=== PATIENT | female | born 1930 | race Asian ===

== ENCOUNTER 2017-06-08 09:06 | Inpatient (IN) | payer MEDICARE, OTHER ==
[~2017-06-08] VITALS: Ht 162.6 cm; Wt 63.0 kg
[2017-06-08] MEDS ORDERED: ONDANSETRON 4 MG INJ IV PRN (12:00)
[2017-06-08] MEDS ORDERED: ACETAMINOPHEN 325 MG TAB PO PRN (12:00)
--- NOTE | 2017-06-08 12:12 | ERD ---
ER Documentation Chief Complaint Chief Complaint sent by dr. stack to declot graft ruma VILLANUEVA This is an 87-year-old female with a known history of [id number] diabetes mellitus and end-stage renal disease on hemodialysis every Friday and Friday. The patient a full run of dialysis on Friday, 2 days prior to arrival. However during this dialysis session the patient's AV fistula of the left upper extremity was clotted and they utilize the patient's left chest vascular surgeon is Dr. Tran. Tunneled catheter for dialysis access. Her financial operations consultant is Dr. Carlene Haynes. She denies any shortness of breath or difficulty breathing. She has no chest pain. She denies any numbness or tingling or pain of her left upper extremity where the fistula was placed roughly 2 months prior to arrival. She was instructed to come to the emergency department for declotting of her fistula. Fevers no shaking or chills ROS All systems reviewed and are negative except as per history of present illness. Allergies Allergies: Coded Allergies: No Known Allergies (Verified Allergy, Unknown, 07/13/07) PMhx/Soc Hx Miscellaneous Medical Probl: Yes (esrd, dialysis) Hx Alcohol Use: No Hx Substance Use: No Hx Tobacco Use: No Smoking Status: Never smoker Physical Exam Vitals Vital Signs Date Time Temp Pulse Resp B/P Pulse Ox O2 Delivery O2 Flow Rate FiO2 06/08/17 09:09 98.8 86 20 134/60 97 Physical Exam Constitutional:Well-developed. Well-nourished. HEENT:Normocephalic. Atraumatic. Left Pupil is reactive to light and right pupil has corneal clouding from a cataract. Moist mucous membranes.No tonsillar exudates. Neck: No nuchal rigidity. No lymphadenopathy. No posterior cervical spine tenderness or step-offs. Respiratory: Not using accessory muscles of respiration.Lungs were clear to auscultation bilaterally. No rhonchi. No rales. No wheezing. Cardiovascular: Regular rate regular rhythm.No murmurs. No rubs were appreciated.S1, S2 normal. Distal pulses are palpable 2+ bilaterally. Left tunneled chest wall catheter is clean dry and intact GI: Abdomen was soft. Nontender. Non Distended. No pulsatile abdominal masses or bruits. No rebound. No guarding. Bowel sounds were present and normal. Muscle skeletal: Full range of motion of both the upper and lower extremities bilaterally.Normal muscle tone.No assymetrical calf tenderness or swelling. Skin: No petechia, no purpura. No lesions on the palms or the soles of the feet. No maculopapular rash. No thrill or bruit of the left upper extremity AV fistula. NEURO: Patient was alert, awake, orientated x3.No facial droop. Gait observed and normal with no ataxia.Speech had regular rate and rhythm. No focal neurological deficits. Result Diagram: 06/08/17 1000 06/08/17 1000 Results 24 hrs Laboratory Tests Test 06/08/17 10:00 White Blood Count 8.510^3/ul Red Blood Count 3.6210^6/ul Hemoglobin 13.3g/dl Hematocrit 41.5% Mean Corpuscular Volume 114.6fl Mean Corpuscular Hemoglobin 36.7pg Mean Corpuscular Hemoglobin Concent 32.0g/dl Red Cell Distribution Width 14.6% Platelet Count 36106^3/UL Mean Platelet Volume 9.8fl Neutrophils % 62.7% Lymphocytes % 23.3% Monocytes % 9.4% Eosinophils % 3.1% Basophils % 1.1% Nucleated Red Blood Cells % 0.0/100WBC Neutrophils # 5.310^3/ul Lymphocytes # 2.010^3/ul Monocytes # 0.810^3/ul Eosinophils # 0.310^3/ul Basophils # 0.110^3/ul Nucleated Red Blood Cells # 0.010^3/ul Prothrombin Time 12.9Sec Prothrombin Time Ratio 1.0 INR International Normalized Ratio 0.97 Activated Partial Thromboplast Time 30.2Sec Sodium Level 141mmol/L Potassium Level 4.7mmol/L Chloride Level 98mmol/L Carbon Dioxide Level 25mmol/L Anion Gap 23 Blood Urea Nitrogen 53mg/dl Creatinine 7.76mg/dl Glucose Level 169mg/dl Calcium Level 9.3mg/dl Total Bilirubin 0.0mg/dl Direct Bilirubin 0.00mg/dl Indirect Bilirubin 0.0mg/dl Aspartate Amino Transf (AST/SGOT) 39IU/L Alanine Aminotransferase (ALT/SGPT) 15IU/L Alkaline Phosphatase 99IU/L Total Protein 8.7g/dl Albumin 4.5g/dl Globulin 4.20g/dl Albumin/Globulin Ratio 1.07 Current Medications Medications (Trade) Dose Ordered Sig/Breanna Route PRN Reason Start Time Stop Time Status Last Admin Dose Admin Ondansetron HCl (Zofran Inj) 4 mg BRIDGE ORDER PRN IV NAUSEA AND/OR VOMITING 06/08/17 12:00 06/09/17 11:59 Acetaminophen (Tylenol Tab) 650 mg ER BRIDGE PRN PO MILD PAIN/FEVER 06/08/17 12:00 06/09/17 11:59 Procedures/MDM She presented to the emergency department for declotting of her AV fistula. The patient had a fistula ultrasound that showed no flow. The patient will be admitted for observation and seen by her vascular surgeon for definitive treatment. She will be admitted to the hospitalist. The patient's potassium was within normal limits and the patient had elevated BUN and creatinine with her chronic kidney disease but did not require emergent hemodialysis at this time. Departure Diagnosis: Primary Impression: Complication of vascular access for dialysis Encounter type: initial encounter Qualified Code: T82.9XXA - Complication of vascular access for dialysis, initial encounter Condition: Serious JOHANNY TEIXEIRA Jun 08, 2017 12:12
--- NOTE | 2017-06-08 12:31 | RADRPT ---
PROCEDURE: US left upper extremity arterial and venous system. CLINICAL INDICATION: Left upper extremity dialysis graft malfunction. TECHNIQUE: Multiple longitudinal and transverse images of the left upper extremity brachial artery , outflow veins, and dialysis graft was obtained with caldwell scale pulsed Doppler, and color Doppler i maging. COMPARISON: None available FINDINGS: The left brachial artery is patent. There is a synthetic graft extending from the left brachial silviano ry. The graft is completely thrombosed. The left axillary vein is completely thrombosed. The left subclavian vein demonstrates normal flow and compressibility. There is no fluid collection or mass. IMPRESSION: 1. Patent left brachial artery and left subclavian vein. 2. Completely thrombosed dialysis graft and left axillary vein. RPTAT: QQ .Lele Castanon MD, Date Time Electronically viewed and signed by .Lele Castanon MD, MD on 06/08/2017 12:31 .R/
[2017-06-08 14:14] VITALS: Ht 162.6 cm; Wt 63.0 kg
--- NOTE | 2017-06-08 16:10 | HP ---
Date/Time of Note Date/Time of Note DATE: 06/08/17 TIME: 16:08 Assessment/Plan VTE Prophylaxis VTE Prophylaxis Intervention: heparin Assessment/Plan Chief Complaint/Hosp Course 87 yo female with ESRD on HD MWF who was referred for clotted AV fistula - Dr Callaway to address AV fisutla tomorrow - Dr Carlene Haynes for HD - Continue home meds for ESRD, DMII, hypertension Problems: HPI/ROS Admit Date/Time Admit Date/Time Jun 08, 2017 at 11:45 Hx of Present Illness 87 yo female wtih ESRD, DMII, cognitive impairment, [place] resident who was sent from HD center as her fistula was found to be clotted Dr Lozano was contacted who recommended referral to [facility] as he will address fistula tomorrow Patient without complaints Has permacath in chest PMH/Family/Social Social History Smoking Status: Never smoker Exam/Review of Systems Vital Signs Vitals Vital Signs Date Time Temp Pulse Resp B/P Pulse Ox O2 Delivery O2 Flow Rate FiO2 06/08/17 09:09 98.8 86 20 134/60 97 Exam Constitutional: alert, oriented, well developed Psych: nl mood/affect, no complaints Head: atraumatic, normocephalic Eyes: EOMI, PERRL, nl conjunctiva, nl lids, nl sclera ENMT: nl external ears & nose, nl lips & teeth, nl nasal mucosa & septum Neck: non-tender, supple Respiratory: clear to auscultation, normal air movement Cardiovascular: nl pulses, regular rate and rhythm Gastrointestinal: nl liver, spleen, non-tender, soft Musculoskeletal: nl extremities to inspection Extremities: normal pulses Neurological: LOG HOOKER II-XII intact, nl mental status, nl speech, nl strength Skin: nl turgor, No rash or lesions Lymph: nl lymph nodes Labs Result Diagram: 06/08/17 1000 06/08/17 1000 TIERENY MAURO MD Jun 08, 2017 16:10
--- NOTE | 2017-06-08 16:10 | HP ---
Date/Time of Note Date/Time of Note DATE: 06/08/17 TIME: 16:08 Assessment/Plan VTE Prophylaxis VTE Prophylaxis Intervention: heparin Assessment/Plan Chief Complaint/Hosp Course 87 yo female with ESRD on HD MWF who was referred for clotted AV fistula - Dr Callaway to address AV fisutla tomorrow - Dr Carlene Haynes for HD - Continue home meds for ESRD, DMII, hypertension Problems: HPI/ROS Admit Date/Time Admit Date/Time Jun 08, 2017 at 11:45 Hx of Present Illness 87 yo female wtih ESRD, DMII, cognitive impairment, [place] resident who was sent from HD center as her fistula was found to be clotted Dr Lozano was contacted who recommended referral to [facility] as he will address fistula tomorrow Patient without complaints Has permacath in chest PMH/Family/Social Social History Smoking Status: Never smoker Exam/Review of Systems Vital Signs Vitals Vital Signs Date Time Temp Pulse Resp B/P Pulse Ox O2 Delivery O2 Flow Rate FiO2 06/08/17 09:09 98.8 86 20 134/60 97 Exam Constitutional: alert, oriented, well developed Psych: nl mood/affect, no complaints Head: atraumatic, normocephalic Eyes: EOMI, PERRL, nl conjunctiva, nl lids, nl sclera ENMT: nl external ears & nose, nl lips & teeth, nl nasal mucosa & septum Neck: non-tender, supple Respiratory: clear to auscultation, normal air movement Cardiovascular: nl pulses, regular rate and rhythm Gastrointestinal: nl liver, spleen, non-tender, soft Musculoskeletal: nl extremities to inspection Extremities: normal pulses Neurological: RETORT ENGINEER II-XII intact, nl mental status, nl speech, nl strength Skin: nl turgor, No rash or lesions Lymph: nl lymph nodes Labs Result Diagram: 06/08/17 1000 06/08/17 1000 TIERNEY MAURO MD Jun 08, 2017 16:10
--- NOTE | 2017-06-08 16:10 | HP ---
Date/Time of Note Date/Time of Note DATE: 06/08/17 TIME: 16:08 Assessment/Plan VTE Prophylaxis VTE Prophylaxis Intervention: heparin Assessment/Plan Chief Complaint/Hosp Course 87 yo female with ESRD on HD MWF who was referred for clotted AV fistula - Dr Callaway to address AV fisutla tomorrow - Dr Carlene Haynes for HD - Continue home meds for ESRD, DMII, hypertension Problems: HPI/ROS Admit Date/Time Admit Date/Time Jun 08, 2017 at 11:45 Hx of Present Illness 87 yo female wtih ESRD, DMII, cognitive impairment, [place] resident who was sent from HD center as her fistula was found to be clotted Dr Lozano was contacted who recommended referral to [facility] as he will address fistula tomorrow Patient without complaints Has permacath in chest PMH/Family/Social Social History Smoking Status: Never smoker Exam/Review of Systems Vital Signs Vitals Vital Signs Date Time Temp Pulse Resp B/P Pulse Ox O2 Delivery O2 Flow Rate FiO2 06/08/17 09:09 98.8 86 20 134/60 97 Exam Constitutional: alert, oriented, well developed Psych: nl mood/affect, no complaints Head: atraumatic, normocephalic Eyes: EOMI, PERRL, nl conjunctiva, nl lids, nl sclera ENMT: nl external ears & nose, nl lips & teeth, nl nasal mucosa & septum Neck: non-tender, supple Respiratory: clear to auscultation, normal air movement Cardiovascular: nl pulses, regular rate and rhythm Gastrointestinal: nl liver, spleen, non-tender, soft Musculoskeletal: nl extremities to inspection Extremities: normal pulses Neurological: STRATIGRAPHER II-XII intact, nl mental status, nl speech, nl strength Skin: nl turgor, No rash or lesions Lymph: nl lymph nodes Labs Result Diagram: 06/08/17 1000 06/08/17 1000 TIERNEY MAURO MD Jun 08, 2017 16:10
[2017-06-08 16:27] VITALS: BP 127/58; RESP 14
[2017-06-08] MEDS ORDERED: NACL 0.9% 3 ML SYG IV SCH (16:30)
[2017-06-08] MEDS: AMLODIPINE 5 MG TAB PO SCH (16:45)
[2017-06-08 16:47] VITALS: BP 142/65; PULSE 80
[2017-06-08] MEDS ORDERED: DEXTROSE 50% 50 ML SYRINGE IV PRN ×2 (17:00)
[2017-06-08] MEDS ORDERED: GLUCOSE GEL 15 GRAM TUBE PO PRN ×2 (17:00)
[2017-06-08] MEDS ORDERED: GLUCAGON 1 MG INJ IM PRN (17:00)
[2017-06-08] MEDS ORDERED: GLUCOSE GEL 15 GRAM TUBE BUCCAL PRN (17:00)
[2017-06-08] MEDS: INSULIN ASPART [NOVOLOG] 3 ML PEN SC SCH ×2 (17:43→20:49)
[2017-06-08] MEDS: CALCIUM ACETATE 667 MG CAP PO SCH (17:45)
--- NOTE | 2017-06-08 18:01 | HP ---
DATE OF ADMISSION: 06/08/2017 VASCULAR SURGERY CONSULTATION Dear Doctors: Mrs. Beltran is an 87-year-old female known to our vascular surgery service with a his tory of end-stage renal disease and a new left upper extremity AV graft creation that involves a tap ered brach axillary PTFE graft. It seems the patient had missed her last dialysis session and upon evaluation this past weekend, it was identified that the patient's graft has thrombosed. The patien t still has her left chest wall catheter in which she received dialysis and tolerated that well. Tyrell cooney has been admitted to the hospital for further evaluation and possible declotting of the graft. At the moment, the patient denies shortness of breath, chest pain, nausea, vomiting, fever or chil ls. REVIEW OF SYSTEMS: A 14-point review performed and negative except what is mentioned in the HPI. PAST MEDICAL HISTORY: Entails end-stage renal disease, diabetes, cognitive impairment, hypertension . PAST SURGICAL HISTORY: Multiple chest wall catheters, left upper extremity AV graft creation. SOCIAL HISTORY: Denies tobacco, alcohol or illicit drug use. FAMILY HISTORY: Hypertension. PHYSICAL EXAMINATION: GENERAL: Alert and oriented x2. Patient sometimes is not able to follow difficult questions. HEENT: Normocephalic, atraumatic. EOMI. Mucosa moist. NECK: Supple. No carotid bruit. PULMONARY: Clear to auscultation bilaterally. No crackles. CARDIOVASCULAR: S1, S2 present. No murmurs. ABDOMEN: Soft, nontender, nondistended. Bowel sounds positive. EXTREMITIES: Lower extremities, palpable femoral pulse, nonpalpable pedal pulse. Motor, sensory in tact. Capillary refill 3 seconds. Left upper extremity palpable brachial pulse. Motor, sensory in tact. Surgical scars well healed. AV graft in the upper arm with no bruit and thrill. ASSESSMENT AND PLAN: 1. End-stage renal disease: It seems the patient's left upper extremity AV graft has clotted. Harpreet sneed plan for the patient to undergo declotting and fistulogram tomorrow. Discussed findings, plan and management with the patient and she understands. We will plan to also call the family to review he r planned for tomorrow. 2. Optimize vascular status (BP meds, diet, nutrition, exercise, sugar control, antiplatelets). Thank you for allowing us to partake in the care of your patient. Please call with any questions. Dictated By: TAMEKA QUINTERO/NEGRITA Conf#: [id number] DID#: [id number]
[2017-06-08 19:55] VITALS: BP 134/60; RESP 19
[2017-06-08] MEDS ORDERED: VANCOMYCIN 1.25 GM in SOD CHLORIDE 0.9% 250 ML IVPB ONE (20:00)
[2017-06-08] MEDS: NA BICARBONATE 650 MG TAB PO SCH (20:39)
[2017-06-08] MEDS: HEPARIN 5,000 UNIT/0.5 ML VIAL SC SCH (20:50)
--- NOTE | 2017-06-08 21:26 | CONS ---
Date/Time of Note Date/Time of Note DATE: 06/08/17 TIME: 21:26 Assessment/Plan Assessment/Plan Additional Assessment/Plan 1. Missed HD due to malfunctioning HD cathter 2. LUE AVG Clotted 3. ESRD on HD 4. HTN 5. DM II Plan : Continue current care Bp stable s/p vascular surgery evaluation by [facility], plan for declotting of AVF o Friday will plan for HD after AVF declotting pt regualr schedulee for HD is MWF, and she follows at [facility] Thanks for consultation,I will conitnue to follow up on patient Consultation Date/Type/Reason Admit Date/Time Jun 08, 2017 at 11:45 Date of Consultation: Jun 08, 2017 Type of Consultation: NEPHROLOGY Reason for Consultation Clotted AVF, Malfunctioning Catheter, ESRD on HD, missed HD Referring Provider: CARLOS NARVAEZ MD Hx of Present Illness 87-year-old female known to our vascular surgery service with a history of end- stage renal disease and a new left upper extremity AV graft creation that involves a tapered brach axillary PTFE graft. It seems the patient had missed her last dialysis session and upon evaluation this past weekend, it was identified that the patient's graft has thrombosed. The patient still has her left chest wall catheter in which she received dialysis and tolerated that well. Patient has been admitted to the hospital for further evaluation and possible declotting of the graft. At the moment, the patient denies shortness of breath, chest pain, nausea, vomiting, fever or chills. S/p Evaluation by vascular surgery Psychological: nl mood/affect, no complaints Past Medical History Medical History: diabetes, GERD, high cholesterol, hypertension, renal disease Past Surgical History Past Surgical Hx: other (AVF surgery, + permacath access ) Family History Significant Family History: no pertinent family hx Social History Alcohol Use: none Smoking Status: Current every day smoker Drug Use: none Exam/Review of Systems Vital Signs Vitals Vital Signs Date Time Temp Pulse Resp B/P Pulse Ox O2 Delivery O2 Flow Rate FiO2 06/08/17 19:55 98.6 85 19 134/60 96 Exam Constitutional: alert Psych: anxiety, no complaints Eyes: nl conjunctiva ENMT: nl external ears & nose Neck: non-tender, supple Respiratory: clear to auscultation, normal air movement Cardiovascular: nl pulses, regular rate and rhythm Gastrointestinal: non-tender, soft Musculoskeletal: nl extremities to inspection, nl gait and stance Extremities: normal pulses Neurological: BUSINESS PLANNING DIRECTOR II-XII intact, nl mental status, nl speech, nl strength Results Result Diagram: 06/08/17 1000 06/08/17 1000 Results 24 hrs Laboratory Tests Test 06/08/17 10:00 06/08/17 17:39 06/08/17 20:41 White Blood Count 8.5 Red Blood Count 3.62 L Hemoglobin 13.3 Hematocrit 41.5 Mean Corpuscular Volume 114.6 H Mean Corpuscular Hemoglobin 36.7 H Mean Corpuscular Hemoglobin Concent 32.0 Red Cell Distribution Width 14.6 H Platelet Count 284 Mean Platelet Volume 9.8 Neutrophils % 62.7 Lymphocytes % 23.3 Monocytes % 9.4 Eosinophils % 3.1 Basophils % 1.1 Nucleated Red Blood Cells % 0.0 Neutrophils # 5.3 Lymphocytes # 2.0 Monocytes # 0.8 Eosinophils # 0.3 Basophils # 0.1 Nucleated Red Blood Cells # 0.0 Prothrombin Time 12.9 Prothrombin Time Ratio 1.0 INR International Normalized Ratio 0.97 Activated Partial Thromboplast Time 30.2 Sodium Level 141 Potassium Level 4.7 Chloride Level 98 Carbon Dioxide Level 25 Anion Gap 23 H Blood Urea Nitrogen 53 H Creatinine 7.76 H Glucose Level 169 Calcium Level 9.3 Total Bilirubin 0.0 L Direct Bilirubin 0.00 Indirect Bilirubin 0.0 Aspartate Amino Transf (AST/SGOT) 39 Alanine Aminotransferase (ALT/SGPT) 15 Alkaline Phosphatase 99 Total Protein 8.7 H Albumin 4.5 Globulin 4.20 H Albumin/Globulin Ratio 1.07 Bedside Glucose 188 220 Medications Medications Current Medications Amlodipine Besylate (Norvasc) 5 mg DAILY PO Last administered on 06/08/17 16: 45; Admin Dose 5 MG; Start 06/08/17 at 16:30 Sodium Bicarbonate (Sodium Bicarbonate Tab) 650 mg BID PO Last administered on 06/08/17 20:39; Admin Dose 650 MG; Start 06/08/17 at 21:00 Carvedilol (Coreg) 3.125 mg BID PO Last administered on 06/08/17 20:39; Admin Dose 3.125 MG; Start 06/08/17 at 21:00 Aspirin (Aspirin) 81 mg DAILY PO ; Start 06/09/17 at 09:00 Escitalopram Oxalate (Lexapro) 5 mg DAILY PO ; Start 06/09/17 at 09:00 Heparin Sodium (Porcine) (Heparin (5000 Units/0.5 ml)) 5,000 unit Q12 SC ; Start 06/08/17 at 21:00 Diagnostic Test (Pha) (Accu-Chek) 1 ea 02 XX ; Start 06/09/17 at 02:00 Insulin Glargine (Lantus) 8 unit DAILY@08 SC ; Start 06/09/17 at 08:00 Miscellaneous Information 1 ea NOTE XX ; Start 06/08/17 at 17:00 Glucose (Glutose) 15 gm Q15M PRN PO DECREASED GLUCOSE; Start 06/08/17 at 17:00 Glucose (Glutose) 22.5 gm Q15M PRN PO DECREASED GLUCOSE; Start 06/08/17 at 17: 00 Dextrose (D50w Syringe) 25 ml Q15M PRN IV DECREASED GLUCOSE; Start 06/08/17 at 17:00 Dextrose (D50w Syringe) 50 ml Q15M PRN IV DECREASED GLUCOSE; Start 06/08/17 at 17:00 Glucagon (Glucagen) 1 mg Q15M PRN IM DECREASED GLUCOSE; Start 06/08/17 at 17:00 Glucose 15 gm 15 gm Q15M PRN BUCCAL DECREASED GLUCOSE; Start 06/08/17 at 17:00 Vancomycin HCl/ Sodium Chloride (Vancocin/NS) 250 ml @ 83.333 mls/ hr ONCE ONCE IVPB Last administered on 06/08/17t 20:39; Admin Dose 83.333 MLS/HR; Start 06/08/17 at 20:00; Stop 06/08/17 at 22:59 ALBA ALEXANDRA MD Jun 08, 2017 21:26
[2017-06-09] MEDS: ACCU-CHEK XX SCH (01:10)
[2017-06-09] MEDS ORDERED: ACCU-CHEK XX SCH (02:00)
[2017-06-09 02:15] VITALS: BP 122/54; RESP 19
[2017-06-09 07:57] VITALS: BP 142/65; RESP 19
[2017-06-09] MEDS: INSULIN GLARGINE [LANtus] 3 ML PEN SC SCH (08:16)
[2017-06-09] MEDS: INSULIN ASPART [NOVOLOG] 3 ML PEN SC SCH ×4 (08:18→21:00)
[2017-06-09] MEDS: CALCIUM ACETATE 667 MG CAP PO SCH ×3 (08:19→18:00)
[2017-06-09] MEDS: NA BICARBONATE 650 MG TAB PO SCH ×2 (08:19→21:00)
[2017-06-09] MEDS: AMLODIPINE 5 MG TAB PO SCH (08:20)
[2017-06-09] MEDS: ESCITALOPRAM 10 MG TAB PO SCH (08:20)
[2017-06-09] MEDS: HEPARIN 5,000 UNIT/0.5 ML VIAL SC SCH ×2 (08:21→21:00)
[2017-06-09] MEDS: ASPIRIN 81 MG TAB PO SCH (08:21)
[2017-06-09] MEDS ORDERED: VANCOMYCIN IV PER PHARMACY XX SCH (09:00)
--- NOTE | 2017-06-09 10:15 | HPN ---
Date/Time of Note Date/Time of Note DATE: 06/09/17 TIME: 10:15 Interval H&P Admission Note Pt. seen H&P reviewed: No system changes TAMEKA MEREDITH MD Jun 09, 2017 10:15
[2017-06-09 13:56] VITALS: BP 134/62; RESP 19
--- NOTE | 2017-06-09 15:15 | CONS ---
DATE OF ADMISSION: 06/08/2017 DATE OF CONSULTATION: 06/09/2017 REASON FOR CONSULTATION: Preoperative evaluation prior to possible creation of a new AV fistula. REQUESTING PHYSICIAN: Dr. Meredith from the vascular surgery service. HISTORY OF PRESENT ILLNESS: Ms. Beltran is an 87-year-old female with history of end-stage renal dis ease on hemodialysis, diabetes mellitus, cognitive impairment, hypertension who had initially presen yumiko with a clotted AV fistula. The patient has been admitted to the floor and evaluated by vascular surgery with thoughts to attempt declotting of the fistula. If not, we will plan for possible crea tion of new fistula. Given these findings, current consult has been requested. Initially upon arri zion, temperature was 98.8, blood pressure 134/60, pulse 86, respiratory 20, saturation 99%. The pat ient's labs were notable for white count of 8.5, hemoglobin of 13.3, platelet count 284, a sodium if 141, potassium 4.7, creatinine 7.7, BUN 53, AST 39, ALT 15. INR 0.97. Patient underwent arterial ultrasound of the upper extremities revealing patent left brachial artery and left subclavian artery , completely thrombosed dialysis graft in the left axillary vein. The patient did not have any EKGs in the chart for my review at this time. PAST MEDICAL HISTORY: As above in HPI. MEDICATIONS CURRENTLY IN HOSPITAL: 1. Aspirin 81 mg daily. 2. Lexapro 5 mg daily. 3. Vancomycin. 4. Lantus 8 units subcutaneous at bedtime. 5. Sodium bicarbonate 600 mg p.o. b.i.d. 6. Carvedilol 3.125 mg p.o. b.i.d. 7. Heparin 5000 subq q.12h., 8. PhosLo. 9. Insulin sliding scale. 10. Norvasc 5 mg daily. ALLERGIES: NO KNOWN DRUG ALLERGIES. SOCIAL HISTORY: No tobacco, ETOH or illicit drug use. FAMILY HISTORY: No history of sudden cardiac or early CAD. REVIEW OF SYSTEMS: As above in HPI. CONSTITUTIONAL: No fevers, chills. PULMONARY: Shortness of breath. CARDIOVASCULAR: No current chest pain. GASTROINTESTINAL: No vomiting. GENITOURINARY: No hematuria. MUSCULOSKELETAL: Degenerative joint disease. PSYCHIATRIC: The patient denies depression. NEUROLOGIC: No documented history of CVA. PHYSICAL EXAMINATION VITAL SIGNS: Temperature of 98.6, blood pressure 114/65, pulse 89, respiratory rate 19, saturating 96%. GENERAL: The patient is alert, awake, in no acute distress. NECK: JVP approximately 9 cm water. CHEST: Upper airway sounds are rhonchorous sounds. HEART: Regular rate and rhythm. Normal S1, S2, I/ systolic murmur, nondisplaced PMI. ABDOMEN: Positive bowel sounds, soft. EXTREMITIES: Trace edema, 1+ pulses bilaterally, posterior tibial. LABORATORIES: As above in HPI from today, white count 9.5, hemoglobin 12.2, platelet count 264. IMAGING STUDIES: As above in HPI. No further imaging studies for my review at this time. ECG: No electrocardiograms for my review at this time. IMPRESSION: 1. Preoperative evaluation prior to thrombectomy of AV fistula and possible need for creation of a new AV fistula. 2. Hypertension. 3. Diabetes mellitus. 4. History of positive troponins and by chart biopsy. 5. Cognitive impairment. RECOMMENDATIONS: 1. At this time, would maintain patient on carvedilol following blood pressure and heart rate close ly, possible need to increase medication. Additionally continue the patient's aspirin for prophylax is against cardiovascular events and Norvasc for additional control of blood pressure Check a fasti ng lipid panel and initiate the patient on statin therapy as necessary. 2. Check a 12-lead EKG at his baseline now and a repeat EKG in the morning to assess for any change s. 3. Would send troponins q.6h. x3 to make sure she has not had any recent coronary syndromes as she is as very poor historian in the setting of upcoming surgery. 4. A 2D echo to further assess patient's ejection fraction, wall motion and major valve abnormaliti es and will consider a Lexiscan stress test on patient to further evaluate her coronary vasculature prior to possible semi-elective procedure. 5. Additionally, continue hemodialysis through current access as possible. 6. Continue patient's antibiotics and follow up all culture data. Thank you for allowing me to take part in the care of this patient. I will continue to follow along very closely with you. Further recommendations will be made as the patient progresses through her inpatient hospital clinical course. Dictated By: DEVON GARCIA/NEGRITA Conf#: [id number] DID#: [id number] CC: TIERNEY MAURO MD; TAMEKA MEREDITH MD;*[facility] [place]*
--- NOTE | 2017-06-09 15:48 | PN ---
Date/Time of Note Date/Time of Note DATE: 06/09/17 TIME: 15:44 Assessment/Plan VTE Prophylaxis VTE Prophylaxis Intervention: heparin Lines/Catheters IV [facility] Saline Lock Assessment/Plan Chief Complaint/Hosp Course 1. End-stage renal disease with clotted AV fistula Plan for declotting with vascular surgery today Hemodialysis once able 2. Hypertension Continue Coreg 3. Diabetes Continue Lantus Prophylaxis: Heparin Problems: Subjective 24 Hr Interval Summary Constitutional: no complaints Exam/Review of Systems Vital Signs Vitals Vital Signs Date Time Temp Pulse Resp B/P Pulse Ox O2 Delivery O2 Flow Rate FiO2 06/09/17 13:56 98.9 84 19 134/62 96 Intake and Output 06/08/17 06/08/17 06/09/17 15:00 23:00 07:00 Intake Total 360 ml 570 ml Balance 360 ml 570 ml Exam Constitutional: alert, oriented Respiratory: clear to auscultation Cardiovascular: regular rate and rhythm Gastrointestinal: soft, No distended Musculoskeletal: nl extremities to inspection Results Result Diagram: 06/09/17 0520 06/09/17 0520 Results 24 hrs Laboratory Tests Test 06/08/17 17:39 06/08/17 20:41 06/09/17 01:06 06/09/17 05:20 Bedside Glucose 188 220 258 H White Blood Count 9.5 Red Blood Count 3.23 L Hemoglobin 12.2 Hematocrit 37.0 Mean Corpuscular Volume 114.6 H Mean Corpuscular Hemoglobin 37.8 H Mean Corpuscular Hemoglobin Concent 33.0 Red Cell Distribution Width 14.3 Platelet Count 264 Mean Platelet Volume 9.5 Neutrophils % 66.9 Lymphocytes % 19.5 Monocytes % 10.0 Eosinophils % 2.8 Basophils % 0.5 Nucleated Red Blood Cells % 0.0 Neutrophils # 6.4 Lymphocytes # 1.9 Monocytes # 1.0 H Eosinophils # 0.3 Basophils # 0.1 Nucleated Red Blood Cells # 0.0 Sodium Level 141 Potassium Level 4.8 Chloride Level 100 Carbon Dioxide Level 24 Anion Gap 22 H Blood Urea Nitrogen 73 H Creatinine 9.49 H Glucose Level 204 Calcium Level 8.7 Total Bilirubin 0.0 L Direct Bilirubin 0.00 Indirect Bilirubin 0.0 Aspartate Amino Transf (AST/SGOT) 26 Alanine Aminotransferase (ALT/SGPT) 17 Alkaline Phosphatase 110 Total Protein 8.0 Albumin 4.0 Globulin 4.00 H Albumin/Globulin Ratio 1.00 Test 06/09/17 08:11 06/09/17 11:34 Bedside Glucose 172 221 H Medications Medications Current Medications Amlodipine Besylate (Norvasc) 5 mg DAILY PO Last administered on 06/09/17 08: 20; Admin Dose 5 MG; Start 06/08/17 at 16:30 Sodium Bicarbonate (Sodium Bicarbonate Tab) 650 mg BID PO Last administered on 06/09/17 08:19; Admin Dose 650 MG; Start 06/08/17 at 21:00 Carvedilol (Coreg) 3.125 mg BID PO Last administered on 06/09/17 08:21; Admin Dose 3.125 MG; Start 06/08/17 at 21:00 Aspirin (Aspirin) 81 mg DAILY PO ; Start 06/09/17 at 09:00 Escitalopram Oxalate (Lexapro) 5 mg DAILY PO Last administered on 06/09/17 08: 20; Admin Dose 5 MG; Start 06/09/17 at 09:00 Heparin Sodium (Porcine) (Heparin (5000 Units/0.5 ml)) 5,000 unit Q12 SC ; Start 06/08/17 at 21:00 Diagnostic Test (Pha) (Accu-Chek) 1 ea 02 XX ; Start 06/09/17 at 02:00 Insulin Glargine (Lantus) 8 unit DAILY@08 SC Last administered on 06/09/17 08: 16; Admin Dose 8 UNIT; Start 06/09/17 at 08:00 Miscellaneous Information 1 ea NOTE XX ; Start 06/08/17 at 17:00 Glucose (Glutose) 15 gm Q15M PRN PO DECREASED GLUCOSE; Start 06/08/17 at 17:00 Glucose (Glutose) 22.5 gm Q15M PRN PO DECREASED GLUCOSE; Start 06/08/17 at 17: 00 Dextrose (D50w Syringe) 25 ml Q15M PRN IV DECREASED GLUCOSE; Start 06/08/17 at 17:00 Dextrose (D50w Syringe) 50 ml Q15M PRN IV DECREASED GLUCOSE; Start 06/08/17 at 17:00 Glucagon (Glucagen) 1 mg Q15M PRN IM DECREASED GLUCOSE; Start 06/08/17 at 17:00 Glucose (Glutose) 15 gm Q15M PRN BUCCAL DECREASED GLUCOSE; Start 06/08/17 at 17 :00 Miscellaneous Information (*Rx Drug Level Order Reminder*) VANCOMYCIN RANDOM LEVEL 1... ONCE ONCE XX ; Start 06/10/17 at 05:00; Stop 06/10/17 at 05:01 AINSLEY HAYNES Jun 09, 2017 15:48
[2017-06-09 20:00] VITALS: BP 168/71; RESP 18
[2017-06-09 22:00] VITALS: BP 140/78; PULSE 77
--- NOTE | 2017-06-09 22:17 | CONS ---
Date/Time of Note Date/Time of Note DATE: 06/09/17 TIME: 22:16 Assessment/Plan Assessment/Plan Chief Complaint/Hosp Course 87-year-old female known to our vascular surgery service with a history of end- stage renal disease and a new left upper extremity AV graft creation that involves a tapered brach axillary PTFE graft. It seems the patient had missed her last dialysis session and upon evaluation this past weekend, it was identified that the patient's graft has thrombosed. The patient still has her left chest wall catheter in which she received dialysis and tolerated that well. Patient has been admitted to the hospital for further evaluation and possible declotting of the graft. At the moment, the patient denies shortness of breath, chest pain, nausea, vomiting, fever or chills. S/p Evaluation by vascular surgery Problems: Additional Assessment/Plan 1. Missed HD due to malfunctioning HD cathter 2. LUE AVG Clotted 3. ESRD on HD 4. HTN 5. DM II Plan : Electrolyest and K stable today s/p vascular surgery evaluation by [facility], plan for declotting of AVF tomorrow am will plan for HD after AVF declotting pt regualr schedulee for HD is MWF, and she follows at [facility] Will follow up Consultation Date/Type/Reason Admit Date/Time Jun 08, 2017 at 11:45 Initial Consult Date 06/08/17 Type of Consultation: NEPHROLOGY Referring Provider: CARLOS NARVAEZ MD 24 HR Interval Summary Free Text/Dictation AVF declotting post poned, Bp stable Exam/Review of Systems Vital Signs Vitals Vital Signs Date Time Temp Pulse Resp B/P Pulse Ox O2 Delivery O2 Flow Rate FiO2 06/09/17 13:56 98.9 84 19 134/62 96 Intake and Output 06/08/17 06/08/17 06/09/17 15:00 23:00 07:00 Intake Total 360 ml 570 ml Balance 360 ml 570 ml Exam Constitutional: alert Psych: anxiety, no complaints Eyes: nl conjunctiva ENMT: nl external ears & nose Neck: non-tender, supple Respiratory: clear to auscultation, normal air movement Cardiovascular: nl pulses, regular rate and rhythm Gastrointestinal: non-tender, soft Musculoskeletal: nl extremities to inspection, nl gait and stance Extremities: normal pulses Neurological: ELECTROPHYSIOLOGY NURSE PRACTITIONER II-XII intact, nl mental status, nl speech, nl strength Results Result Diagram: 06/09/17 0520 06/09/17 0520 Results 24 hrs Laboratory Tests Test 06/09/17 01:06 06/09/17 05:20 06/09/17 08:11 06/09/17 11:34 Bedside Glucose 258 H 172 221 H White Blood Count 9.5 Red Blood Count 3.23 L Hemoglobin 12.2 Hematocrit 37.0 Mean Corpuscular Volume 114.6 H Mean Corpuscular Hemoglobin 37.8 H Mean Corpuscular Hemoglobin Concent 33.0 Red Cell Distribution Width 14.3 Platelet Count 264 Mean Platelet Volume 9.5 Neutrophils % 66.9 Lymphocytes % 19.5 Monocytes % 10.0 Eosinophils % 2.8 Basophils % 0.5 Nucleated Red Blood Cells % 0.0 Neutrophils # 6.4 Lymphocytes # 1.9 Monocytes # 1.0 H Eosinophils # 0.3 Basophils # 0.1 Nucleated Red Blood Cells # 0.0 Sodium Level 141 Potassium Level 4.8 Chloride Level 100 Carbon Dioxide Level 24 Anion Gap 22 H Blood Urea Nitrogen 73 H Creatinine 9.49 H Glucose Level 204 Calcium Level 8.7 Total Bilirubin 0.0 L Direct Bilirubin 0.00 Indirect Bilirubin 0.0 Aspartate Amino Transf (AST/SGOT) 26 Alanine Aminotransferase (ALT/SGPT) 17 Alkaline Phosphatase 110 Total Protein 8.0 Albumin 4.0 Globulin 4.00 H Albumin/Globulin Ratio 1.00 Test 06/09/17 17:11 Bedside Glucose 136 Medications Medications Current Medications Amlodipine Besylate (Norvasc) 5 mg DAILY PO Last administered on 06/09/17 08: 20; Admin Dose 5 MG; Start 06/08/17 at 16:30 Sodium Bicarbonate (Sodium Bicarbonate Tab) 650 mg BID PO Last administered on 06/09/17 08:19; Admin Dose 650 MG; Start 06/08/17 at 21:00 Carvedilol (Coreg) 3.125 mg BID PO Last administered on 06/09/17 08:21; Admin Dose 3.125 MG; Start 06/08/17 at 21:00 Aspirin (Aspirin) 81 mg DAILY PO ; Start 06/09/17 at 09:00 Escitalopram Oxalate (Lexapro) 5 mg DAILY PO Last administered on 06/09/17 08: 20; Admin Dose 5 MG; Start 06/09/17 at 09:00 Heparin Sodium (Porcine) (Heparin (5000 Units/0.5 ml)) 5,000 unit Q12 SC ; Start 06/08/17 at 21:00 Diagnostic Test (Pha) (Accu-Chek) 1 ea 02 XX ; Start 06/09/17 at 02:00 Insulin Glargine (Lantus) 8 unit DAILY@08 SC Last administered on 06/09/17t 08: 16; Admin Dose 8 UNIT; Start 06/09/17 at 08:00 Miscellaneous Information 1 ea NOTE XX ; Start 06/08/17 at 17:00 Glucose (Glutose) 15 gm Q15M PRN PO DECREASED GLUCOSE; Start 06/08/17 at 17:00 Glucose (Glutose) 22.5 gm Q15M PRN PO DECREASED GLUCOSE; Start 06/08/17 at 17: 00 Dextrose (D50w Syringe) 25 ml Q15M PRN IV DECREASED GLUCOSE; Start 06/08/17 at 17:00 Dextrose (D50w Syringe) 50 ml Q15M PRN IV DECREASED GLUCOSE; Start 06/08/17 at 17:00 Glucagon (Glucagen) 1 mg Q15M PRN IM DECREASED GLUCOSE; Start 06/08/17 at 17:00 Glucose (Glutose) 15 gm Q15M PRN BUCCAL DECREASED GLUCOSE; Start 06/08/17 at 17 :00 Miscellaneous Information (*Rx Drug Level Order Reminder*) VANCOMYCIN RANDOM LEVEL 1... ONCE ONCE XX ; Start 06/10/17 at 05:00; Stop 06/10/17 at 05:01 ALBA ALEXANDRA MD Jun 09, 2017 22:17
[2017-06-10] VITALS (22 sets, daily range): BP systolic 90–152; BP diastolic 53–71; PULSE 79–88; RESP 14–20
[2017-06-10] MEDS: ACCU-CHEK XX SCH (02:00)
[2017-06-10] MEDS ORDERED: ONDANSETRON 4 MG INJ IV PRN (07:00)
[2017-06-10] MEDS ORDERED: ATROPINE 1 MG/10 ML SYRINGE IV PRN (07:00)
[2017-06-10] MEDS ORDERED: DIPHENHYDRAMINE 50 MG INJ IV PRN (07:00)
[2017-06-10] MEDS ORDERED: OXYCODONE/ACETAMINOPHEN (5/325) TAB PO PRN ×2 (07:00)
[2017-06-10] MEDS ORDERED: MEPERIDINE 25 MG INJ IV PRN (07:00)
[2017-06-10] MEDS ORDERED: morphine (1 MG/ML) 10ML SYRINGE IV PRN ×3 (07:00)
[2017-06-10] MEDS ORDERED: hydrALAzine 20 MG INJ IV PRN (07:00)
[2017-06-10] MEDS ORDERED: HYDROmorphONE (0.2 MG/ML) 10ML SYG IV PRN ×3 (07:00)
[2017-06-10] MEDS ORDERED: MIDAZOLAM 1 MG/ML 2 ML INJ IV PRN (07:00)
[2017-06-10] MEDS ORDERED: LABETALOL HCL 20MG INJ IV PRN (07:00)
[2017-06-10] MEDS ORDERED: FENTAnyl 50 MCG/ML VIAL IV PRN ×2 (07:00)
[2017-06-10] MEDS ORDERED: EPHEDrine SULFATE 50 MG/5 ML SYG IV PRN (07:00)
[2017-06-10] MEDS ORDERED: NEOSTIGMINE 3 MG/3 ML SYRINGE ONE (07:21)
[2017-06-10] MEDS ORDERED: MIDAZOLAM 1 MG/ML 2 ML INJ ONE (07:21)
[2017-06-10] MEDS ORDERED: PROPOFOL 20 ML ONE (07:21)
[2017-06-10] MEDS ORDERED: LIDOCAINE 2% (SDV) 5 ML INJ ONE (07:21)
[2017-06-10] MEDS ORDERED: FENTAnyl 50 MCG/ML VIAL ONE (07:21)
[2017-06-10] MEDS ORDERED: GLYCOPYRROLATE 1 MG INJ ONE (07:21)
[2017-06-10] MEDS ORDERED: ROCURONIUM 50 MG INJ ONE (07:21)
[2017-06-10] MEDS ORDERED: LIDOCAINE 2%/EPI 30 ML INJ ONE (07:23)
[2017-06-10] MEDS ORDERED: LIDOCAINE 1% (MPF) 30 ML INJ ONE (07:32)
[2017-06-10] MEDS ORDERED: THROMBIN 5000 UNIT VIAL ONE (07:32)
[2017-06-10] MEDS ORDERED: GELATIN SIZE 100 SPONGE ONE (07:32)
[2017-06-10] MEDS ORDERED: HEPARIN 1000 UNITS/ML 10 ML INJ ONE (07:33)
[2017-06-10] MEDS ORDERED: IOHEXOL 300MG/ML 30 ML BTL ONE ×2 (07:50→09:02)
[2017-06-10] MEDS: INSULIN GLARGINE [LANtus] 3 ML PEN SC SCH (08:00)
[2017-06-10] MEDS: INSULIN ASPART [NOVOLOG] 3 ML PEN SC SCH ×2 (08:15→12:24)
[2017-06-10] MEDS: CALCIUM ACETATE 667 MG CAP PO SCH ×2 (08:15→12:27)
[2017-06-10] MEDS ORDERED: LIDOCAINE 1% (MPF) 30 ML INJ INJ ONE (08:22)
--- NOTE | 2017-06-10 08:54 | CONS ---
Date/Time of Note Date/Time of Note DATE: 06/10/17 TIME: 08:54 Assessment/Plan Assessment/Plan Additional Assessment/Plan Pt in surgery now, will follow polly-op. Consultation Date/Type/Reason Admit Date/Time Jun 08, 2017 at 11:45 Initial Consult Date 06/08/17 Type of Consultation: NEPHROLOGY Referring Provider: CARLOS NARVAEZ MD Exam/Review of Systems Vital Signs Vitals Vital Signs Date Time Temp Pulse Resp B/P Pulse Ox O2 Delivery O2 Flow Rate FiO2 06/10/17 05:41 98.6 81 18 130/60 96 Room Air Results Result Diagram: 06/10/17 0535 06/10/17 0535 Results 24 hrs Laboratory Tests Test 06/09/17 11:34 06/09/17 17:11 06/09/17 19:30 06/09/17 21:05 Bedside Glucose 221 H 136 149 Creatine Kinase 35 Creatine Kinase Index 0.6 Creatinine Kinase MB (Mass) < 0.22 Troponin I 0.053 Test 06/10/17 05:35 06/10/17 05:38 06/10/17 06:55 White Blood Count 8.0 Red Blood Count 3.22 L Hemoglobin 11.8 L Hematocrit 35.9 L Mean Corpuscular Volume 111.5 H Mean Corpuscular Hemoglobin 36.6 H Mean Corpuscular Hemoglobin Concent 32.9 Red Cell Distribution Width 14.1 Platelet Count 275 Mean Platelet Volume 9.4 Neutrophils % 61.9 Lymphocytes % 24.7 Monocytes % 8.1 Eosinophils % 4.1 Basophils % 1.0 Nucleated Red Blood Cells % 0.0 Neutrophils # 5.0 Lymphocytes # 2.0 Monocytes # 0.7 Eosinophils # 0.3 Basophils # 0.1 Nucleated Red Blood Cells # 0.0 Sodium Level 141 Potassium Level 5.4 H Chloride Level 100 Carbon Dioxide Level 23 Anion Gap 23 H Blood Urea Nitrogen 87 H Creatinine 10.82 H Glucose Level 102 # Calcium Level 9.1 Creatine Kinase 31 Creatine Kinase Index 0.7 Creatinine Kinase MB (Mass) < 0.22 Troponin I 0.054 Triglycerides Level 246 H Cholesterol Level 195 LDL Cholesterol, Calculated 116 HDL Cholesterol 30 L Cholesterol/HDL Ratio 6.5 Random Vancomycin Level 17.1 Bedside Glucose 106 110 Medications Medications Current Medications Amlodipine Besylate (Norvasc) 5 mg DAILY PO Last administered on 06/09/17t 08: 20; Admin Dose 5 MG; Start 06/08/17 at 16:30 Sodium Bicarbonate (Sodium Bicarbonate Tab) 650 mg BID PO Last administered on 06/09/17 21:00; Admin Dose 650 MG; Start 06/08/17 at 21:00 Carvedilol (Coreg) 3.125 mg BID PO Last administered on 06/09/17 21:00; Admin Dose 3.125 MG; Start 06/08/17 at 21:00 Aspirin (Aspirin) 81 mg DAILY PO ; Start 06/09/17 at 09:00 Escitalopram Oxalate (Lexapro) 5 mg DAILY PO Last administered on 06/09/17 08: 20; Admin Dose 5 MG; Start 06/09/17 at 09:00 Heparin Sodium (Porcine) (Heparin (5000 Units/0.5 ml)) 5,000 unit Q12 SC Last administered on 06/09/17 21:00; Admin Dose 5,000 UNIT; Start 06/08/17 at 21:00 Diagnostic Test (Pha) (Accu-Chek) 1 ea 02 XX ; Start 06/09/17 at 02:00 Insulin Glargine (Lantus) 8 unit DAILY@08 SC Last administered on 06/09/17 08: 16; Admin Dose 8 UNIT; Start 06/09/17 at 08:00 Miscellaneous Information 1 ea NOTE XX ; Start 06/08/17 at 17:00 Glucose (Glutose) 15 gm Q15M PRN PO DECREASED GLUCOSE; Start 06/08/17 at 17:00 Glucose (Glutose) 22.5 gm Q15M PRN PO DECREASED GLUCOSE; Start 06/08/17 at 17: 00 Dextrose (D50w Syringe) 25 ml Q15M PRN IV DECREASED GLUCOSE; Start 06/08/17 at 17:00 Dextrose (D50w Syringe) 50 ml Q15M PRN IV DECREASED GLUCOSE; Start 06/08/17 at 17:00 Glucagon (Glucagen) 1 mg Q15M PRN IM DECREASED GLUCOSE; Start 06/08/17 at 17:00 Glucose (Glutose) 15 gm Q15M PRN BUCCAL DECREASED GLUCOSE; Start 06/08/17 at 17 :00 JONATHAN SALTER MD Jun 10, 2017 08:54
[2017-06-10] MEDS: ASPIRIN 81 MG TAB PO SCH (09:00)
[2017-06-10] MEDS: AMLODIPINE 5 MG TAB PO SCH (09:00)
[2017-06-10] MEDS: NA BICARBONATE 650 MG TAB PO SCH (09:00)
[2017-06-10] MEDS: ESCITALOPRAM 10 MG TAB PO SCH (09:00)
[2017-06-10] MEDS: HEPARIN 5,000 UNIT/0.5 ML VIAL SC SCH (09:00)
--- NOTE | 2017-06-10 09:29 | SIPON ---
Date/Time of Note Date/Time of Note DATE: 06/10/17 TIME: 09:27 Operative Report Preoperative Diagnosis ESRD & CENTRAL STENOSIS, OCCLUDED GRAFT Postoperative Diagnosis SAME Operation/Procedure Performed LUE THROMBECTOMY AND ANGIOGRAM Surgeon see signature line assistant professor of life sciences NONE Anesthesia: moderate sedation Estimated blood loss: 50 - 100 ml's Transfusion Required none Specimen THROMBUS Grafts/Implants none Complications none TAMEKA MEREDITH MD Jun 10, 2017 09:29
--- NOTE | 2017-06-10 09:29 | SIPON ---
Date/Time of Note Date/Time of Note DATE: 06/10/17 TIME: 09:27 Operative Report Preoperative Diagnosis ESRD & CENTRAL STENOSIS, OCCLUDED GRAFT Postoperative Diagnosis SAME Operation/Procedure Performed LUE THROMBECTOMY AND ANGIOGRAM Surgeon see signature line patent legal assistant NONE Anesthesia: moderate sedation Estimated blood loss: 50 - 100 ml's Transfusion Required none Specimen THROMBUS Grafts/Implants none Complications none TAMEKA MEREDITH MD Jun 10, 2017 09:29
--- NOTE | 2017-06-10 09:29 | SIPON ---
Date/Time of Note Date/Time of Note DATE: 06/10/17 TIME: 09:27 Operative Report Preoperative Diagnosis ESRD & CENTRAL STENOSIS, OCCLUDED GRAFT Postoperative Diagnosis SAME Operation/Procedure Performed LUE THROMBECTOMY AND ANGIOGRAM Surgeon see signature line after school program assistant NONE Anesthesia: moderate sedation Estimated blood loss: 50 - 100 ml's Transfusion Required none Specimen THROMBUS Grafts/Implants none Complications none TAMEKA MEREDITH MD Jun 10, 2017 09:29
[2017-06-10] MEDS ORDERED: THROMBIN 5000 UNIT VIAL TOP ONE (09:34)
[2017-06-10] MEDS ORDERED: HEPARIN 10,000 UNITS/ML 1 ML INJ IRR ONE (09:34)
[2017-06-10] MEDS ORDERED: IOHEXOL 300MG/ML 30 ML BTL IV ONE (09:34)
[2017-06-10] MEDS ORDERED: GELATIN SIZE 100 SPONGE TOP ONE (09:34)
--- NOTE | 2017-06-10 10:14 | OPR ---
DATE OF OPERATION: 06/10/2017 SURGEON: Nilton Vargas MD PREOPERATIVE DIAGNOSIS: End-stage renal disease, central stenosis, occluded left upper extremity gr aft. POSTOPERATIVE DIAGNOSIS: End-stage renal disease, central stenosis, occluded left upper extremity g raft. PROCEDURE: 1. Thrombectomy of left upper extremity AV graft involving the brachial artery and axillary vein. 2. Fistulogram. ANESTHESIA: Regional block and moderate sedation. COMPLICATIONS: None. ESTIMATED BLOOD LOSS: 100 mL. TRANSFUSIONS: None. SPECIMEN: Thrombus from the graft sent for pathology. INDICATIONS: This is an 87-year-old female with a plethora of medical conditions who presented with occluded left upper extremity brachioaxillary tapered Acuseal graft. Patient also has a current le ft chest wall catheter in which he has not followed up with us for removal of the catheter. It seem s that the graft had thrombosed over the past week and the patient was brought in for declotting and further evaluation of her central venous system for the possibility of central stenosis. Risks, be nefits and alternatives were discussed with the patient and family and not limited to , [place] and pneumonia, stroke, infection, thrombosis of graft and arteriovenous fistula, nerve injury, limb loss , revision of AV fistula, Steal, pulmonary embolism and malfunctioning of devices. The patient has elected to undergo surgical intervention. DESCRIPTION OF PROCEDURE: The patient was brought into the operating room table, placed in supine p osition. The left upper extremity was placed at 80 degrees. The right upper extremity was placed i n anatomical position. The normal bony prominences were padded. Anesthesia team had placed appropr iate lines and moderate sedation regional block was initiated. The patient tolerated that well. Ti me out was performed. Appropriate site was marked and confirmed. Preoperative antibiotics were giv en. The patient's left upper extremity was prepped and draped in usual standard sterile fashion. A 2-1/2 longitudinal incision was made on the lateral aspect of the upper arm near the antecubital f roosevelt. At this point, the skin and subcutaneous tissue was dissected and the graft was exposed from its lateral aspect There were some small venous branches which were ligated with surgical clips. O nce an Acuseal graft was identified, a graftotomy was made with the #11 blade. At this point, using a 2-[place] Fogerty, we performed thrombectomy of the arterial aspect of her fistula. Two passes we re made and pulsatile flow was then established via the arterial aspect of the graft. The patient w as given 2500 units of heparin and the vascular cap was placed. Subsequently, attention was turned towards the venous aspect of the graft. Using 3-[place] Tony c atheter, multiple passes were made and extensive clot was removed. Further in this segment, w e provided heparinized saline solution and performed 2 more passes with 3-[place] Tony catheter, a n adequate amount of thrombus was removed and the back bleeding was identified. At this point, the graftotomy was repaired with 6-0 Prolene suture. An angiocatheter was placed within the graft and a fistulogram was performed of the left upper extremity. At this point, it was identified patient landeros ving adequate flow to the brachial artery and across the graft. However, the area with venous anast omosis was located. There is an area with moderate stenosis. Axillary vein is patent. The subclav carlos enrique vein is patent until its distal aspect where there was no more flow was identified. 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 At this point, no further intervention was performed as we were limited with our angio table not willie ng feasible for fluoroscopy and intervention. Therefore, we will plan for a staged procedure in [facility] we will bring the patient back for evaluation of her central stenosis/occlusion [facility] and . The patient tolerated procedure well. Hemostasis was checked and confirmed. The skin incision was closed with 3-0 Vicryl suture for subcutaneous, and dermal layers . Dermabond was applied superficially. Patient tolerated procedure well and was taken to the posta nesthesia care unit in stable condition. All instrument, sponge, needle counts and catheters were c orrect x2. Dictated By: NILTON QUINTERO/NEGRITA Conf#: [id number] DID#: [id number]
--- NOTE | 2017-06-10 10:14 | OPR ---
DATE OF OPERATION: 06/10/2017 SURGEON: Nilton Vargas MD PREOPERATIVE DIAGNOSIS: End-stage renal disease, central stenosis, occluded left upper extremity gr aft. POSTOPERATIVE DIAGNOSIS: End-stage renal disease, central stenosis, occluded left upper extremity g raft. PROCEDURE: 1. Thrombectomy of left upper extremity AV graft involving the brachial artery and axillary vein. 2. Fistulogram. ANESTHESIA: Regional block and moderate sedation. COMPLICATIONS: None. ESTIMATED BLOOD LOSS: 100 mL. TRANSFUSIONS: None. SPECIMEN: Thrombus from the graft sent for pathology. INDICATIONS: This is an 87-year-old female with a plethora of medical conditions who presented with occluded left upper extremity brachioaxillary tapered Acuseal graft. Patient also has a current le ft chest wall catheter in which he has not followed up with us for removal of the catheter. It seem s that the graft had thrombosed over the past week and the patient was brought in for declotting and further evaluation of her central venous system for the possibility of central stenosis. Risks, be nefits and alternatives were discussed with the patient and family and not limited to , [place] and pneumonia, stroke, infection, thrombosis of graft and arteriovenous fistula, nerve injury, limb loss , revision of AV fistula, Steal, pulmonary embolism and malfunctioning of devices. The patient has elected to undergo surgical intervention. DESCRIPTION OF PROCEDURE: The patient was brought into the operating room table, placed in supine p osition. The left upper extremity was placed at 80 degrees. The right upper extremity was placed i n anatomical position. The normal bony prominences were padded. Anesthesia team had placed appropr iate lines and moderate sedation regional block was initiated. The patient tolerated that well. Ti me out was performed. Appropriate site was marked and confirmed. Preoperative antibiotics were giv en. The patient's left upper extremity was prepped and draped in usual standard sterile fashion. A 2-1/2 longitudinal incision was made on the lateral aspect of the upper arm near the antecubital f roosevelt. At this point, the skin and subcutaneous tissue was dissected and the graft was exposed from its lateral aspect There were some small venous branches which were ligated with surgical clips. O nce an Acuseal graft was identified, a graftotomy was made with the #11 blade. At this point, using a 2-[place] Fogerty, we performed thrombectomy of the arterial aspect of her fistula. Two passes we re made and pulsatile flow was then established via the arterial aspect of the graft. The patient w as given 2500 units of heparin and the vascular cap was placed. Subsequently, attention was turned towards the venous aspect of the graft. Using 3-[place] Tony c atheter, multiple passes were made and extensive clot was removed. Further in this segment, w e provided heparinized saline solution and performed 2 more passes with 3-[place] Tony catheter, a n adequate amount of thrombus was removed and the back bleeding was identified. At this point, the graftotomy was repaired with 6-0 Prolene suture. An angiocatheter was placed within the graft and a fistulogram was performed of the left upper extremity. At this point, it was identified patient landeros ving adequate flow to the brachial artery and across the graft. However, the area with venous anast omosis was located. There is an area with moderate stenosis. Axillary vein is patent. The subclav carlos enrique vein is patent until its distal aspect where there was no more flow was identified. 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 At this point, no further intervention was performed as we were limited with our angio table not willie ng feasible for fluoroscopy and intervention. Therefore, we will plan for a staged procedure in [facility] we will bring the patient back for evaluation of her central stenosis/occlusion for [facility] and . The patient tolerated procedure well. Hemostasis was checked and confirmed. The skin incision was closed with 3-0 Vicryl suture for subcutaneous, and dermal layers . Dermabond was applied superficially. Patient tolerated procedure well and was taken to the posta nesthesia care unit in stable condition. All instrument, sponge, needle counts and catheters were c orrect x2. Dictated By: NILTON QUINTERO/NEGRITA Conf#: [id number] DID#: [id number]
--- NOTE | 2017-06-10 10:14 | OPR ---
DATE OF OPERATION: 06/10/2017 SURGEON: Nilton Vargas MD PREOPERATIVE DIAGNOSIS: End-stage renal disease, central stenosis, occluded left upper extremity gr aft. POSTOPERATIVE DIAGNOSIS: End-stage renal disease, central stenosis, occluded left upper extremity g raft. PROCEDURE: 1. Thrombectomy of left upper extremity AV graft involving the brachial artery and axillary vein. 2. Fistulogram. ANESTHESIA: Regional block and moderate sedation. COMPLICATIONS: None. ESTIMATED BLOOD LOSS: 100 mL. TRANSFUSIONS: None. SPECIMEN: Thrombus from the graft sent for pathology. INDICATIONS: This is an 87-year-old female with a plethora of medical conditions who presented with occluded left upper extremity brachioaxillary tapered Acuseal graft. Patient also has a current le ft chest wall catheter in which he has not followed up with us for removal of the catheter. It seem s that the graft had thrombosed over the past week and the patient was brought in for declotting and further evaluation of her central venous system for the possibility of central stenosis. Risks, be nefits and alternatives were discussed with the patient and family and not limited to , [place] and pneumonia, stroke, infection, thrombosis of graft and arteriovenous fistula, nerve injury, limb loss , revision of AV fistula, Steal, pulmonary embolism and malfunctioning of devices. The patient has elected to undergo surgical intervention. DESCRIPTION OF PROCEDURE: The patient was brought into the operating room table, placed in supine p osition. The left upper extremity was placed at 80 degrees. The right upper extremity was placed i n anatomical position. The normal bony prominences were padded. Anesthesia team had placed appropr iate lines and moderate sedation regional block was initiated. The patient tolerated that well. Ti me out was performed. Appropriate site was marked and confirmed. Preoperative antibiotics were giv en. The patient's left upper extremity was prepped and draped in usual standard sterile fashion. A 2-1/2 longitudinal incision was made on the lateral aspect of the upper arm near the antecubital f roosevelt. At this point, the skin and subcutaneous tissue was dissected and the graft was exposed from its lateral aspect There were some small venous branches which were ligated with surgical clips. O nce an Acuseal graft was identified, a graftotomy was made with the #11 blade. At this point, using a 2-Scottish Fogerty, we performed thrombectomy of the arterial aspect of her fistula. Two passes we re made and pulsatile flow was then established via the arterial aspect of the graft. The patient w as given 2500 units of heparin and the vascular cap was placed. Subsequently, attention was turned towards the venous aspect of the graft. Using 3-Scottish Tony c atheter, multiple passes were made and extensive clot was removed. Further in this segment, w e provided heparinized saline solution and performed 2 more passes with 3-Scottish Tony catheter, a n adequate amount of thrombus was removed and the back bleeding was identified. At this point, the graftotomy was repaired with 6-0 Prolene suture. An angiocatheter was placed within the graft and a fistulogram was performed of the left upper extremity. At this point, it was identified patient landeros ving adequate flow to the brachial artery and across the graft. However, the area with venous anast omosis was located. There is an area with moderate stenosis. Axillary vein is patent. The subclav carlos enrique vein is patent until its distal aspect where there was no more flow was identified. 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 At this point, no further intervention was performed as we were limited with our angio table not willie ng feasible for fluoroscopy and intervention. Therefore, we will plan for a staged procedure in [facility] we will bring the patient back for evaluation of her central stenosis/occlusion for possible [facility] hiocephalic venoplasty and . The patient tolerated procedure well. Hemostasis was checked and confirmed. The skin incision was closed with 3-0 Vicryl suture for subcutaneous, and dermal layers . Dermabond was applied superficially. Patient tolerated procedure well and was taken to the posta nesthesia care unit in stable condition. All instrument, sponge, needle counts and catheters were c orrect x2. Dictated By: NILTON QUINTERO/NEGRITA Conf#: [id number] DID#: [id number]
--- NOTE | 2017-06-10 10:30 | RADRPT ---
PROCEDURE: XR Left Humerus. CLINICAL INDICATION: Left arm pain. Postop. TECHNIQUE: AP and lateral views of the left humerus were performed. COMPARISON: None. FINDINGS: There is no fracture or dislocation. There is a tunneled dialysis catheter overlying the left side of the chest. There is a dialysis ambreen t overlying the mid to distal humerus with surgical clips noted. Articular surfaces are intact. There is no lytic or blastic lesion. There is no radiopaque foreign body. IMPRESSION: 1. Dialysis catheter overlying the left side of the chest. 2. Dialysis graft overlying the mid to distal left humerus. 3. No bone or joint abnormality. RPTAT: QQ .Lele Castanon MD, MD Date Time Electronically viewed and signed by .Lele Castanon MD, MD on 06/10/2017 10:30 .R/
--- NOTE | 2017-06-10 12:24 | RADRPT ---
PROCEDURE: Intraoperative imaging of the left upper extremity with fluoroscopy. CLINICAL INDICATION: Declotting of left upper extremity dialysis graft. Intraoperative. TECHNIQUE: 5 images of the left upper extremity were obtained in the operating room with an image intensifier. No radiologist was in attendance. Fluoroscopy time is 106 seconds. COMPARISON: No prior study is available for comparison. FINDINGS: Images demonstrate contrast in the graft in the left upper extremity. Contrast is also present in th e left upper extremity venous system. IMPRESSION: 1. Intraoperative imaging of the left upper extremity. RPTAT: QQ .Lele Castanon MD, MD Date Time Electronically viewed and signed by .Lele Castanon MD, on 06/10/2017 12:23 .R/
[2017-06-10] MEDS ORDERED: VANCOMYCIN 1 GM (PMX) 250 ML IVPB ONE (12:30)
--- NOTE | 2017-06-10 12:39 | PDOCDIS ---
Discharge Instructions CONDITION Patient Condition: Good HOME CARE INSTRUCTIONS: Special Diet: RENAL DIET ACTIVITY: Activity Restrictions: No Restrictions FOLLOW UP/APPOINTMENTS Follow-up Plan F/U WITH YOUR PCP IN 1-[address] TAMEKA MEREDITH OF VASCULAR SURGERY IN 1-2 WEEKS AINSLEY HAYNES Jun 10, 2017 12:39
--- NOTE | 2017-06-10 14:17 | CONS ---
Date/Time of Note Date/Time of Note DATE: 06/10/17 TIME: 14:15 Assessment/Plan Assessment/Plan Chief Complaint/Hosp Course 87-year-old female known to our vascular surgery service with a history of end- stage renal disease and a new left upper extremity AV graft creation that involves a tapered brach axillary PTFE graft. It seems the patient had missed her last dialysis session and upon evaluation this past weekend, it was identified that the patient's graft has thrombosed. The patient still has her left chest wall catheter in which she received dialysis and tolerated that well. Patient has been admitted to the hospital for further evaluation and possible declotting of the graft. At the moment, the patient denies shortness of breath, chest pain, nausea, vomiting, fever or chills. S/p Evaluation by vascular surgery Problems: Additional Assessment/Plan 1. Missed HD due to malfunctioning HD cathter 2. LUE AVG Clotted 3. ESRD on HD 4. HTN 5. DM II Plan : K 5.4, BP stable s/p Thrombectomy of left upper extremity AV graft involving the brachial artery and axillary vein. Fistulogram. Plan for HD today after declotting. pt regualr schedulee for HD is MW, and she follows at [facility] Will follow up Consultation Date/Type/Reason Admit Date/Time Jun 08, 2017 at 11:45 Initial Consult Date 06/08/17 Type of Consultation: NEPHROLOGY Referring Provider: CARLOS NARVAEZ MD 24 HR Interval Summary Free Text/Dictation plan for AVF Declotting, will for HD after declotting Exam/Review of Systems Vital Signs Vitals Vital Signs Date Time Temp Pulse Resp B/P Pulse Ox O2 Delivery O2 Flow Rate FiO2 06/10/17 11:00 79 19 06/10/17 10:40 98.5 152/65 97 06/10/17 10:20 Room Air Exam Constitutional: alert Psych: anxiety, no complaints Eyes: nl conjunctiva ENMT: nl external ears & nose Neck: non-tender, supple Respiratory: clear to auscultation, normal air movement Cardiovascular: nl pulses, regular rate and rhythm Gastrointestinal: non-tender, soft Musculoskeletal: nl extremities to inspection, nl gait and stance Extremities: normal pulses Neurological: 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 intact, nl mental status, nl speech, nl strength Results Result Diagram: 06/10/17 0535 06/10/17 0535 Results 24 hrs Laboratory Tests Test 06/09/17 17:11 06/09/17 19:30 06/09/17 21:05 06/10/17 05:35 Bedside Glucose 136 149 Creatine Kinase 35 31 Creatine Kinase Index 0.6 0.7 Creatinine Kinase MB (Mass) < 0.22 < 0.22 Troponin I 0.053 0.054 White Blood Count 8.0 Red Blood Count 3.22 L Hemoglobin 11.8 L Hematocrit 35.9 L Mean Corpuscular Volume 111.5 H Mean Corpuscular Hemoglobin 36.6 H Mean Corpuscular Hemoglobin Concent 32.9 Red Cell Distribution Width 14.1 Platelet Count 275 Mean Platelet Volume 9.4 Neutrophils % 61.9 Lymphocytes % 24.7 Monocytes % 8.1 Eosinophils % 4.1 Basophils % 1.0 Nucleated Red Blood Cells % 0.0 Neutrophils # 5.0 Lymphocytes # 2.0 Monocytes # 0.7 Eosinophils # 0.3 Basophils # 0.1 Nucleated Red Blood Cells # 0.0 Sodium Level 141 Potassium Level 5.4 H Chloride Level 100 Carbon Dioxide Level 23 Anion Gap 23 H Blood Urea Nitrogen 87 H Creatinine 10.82 H Glucose Level 102 # Calcium Level 9.1 Triglycerides Level 246 H Cholesterol Level 195 LDL Cholesterol, Calculated 116 HDL Cholesterol 30 L Cholesterol/HDL Ratio 6.5 Random Vancomycin Level 17.1 Test 06/10/17 05:38 06/10/17 06:55 06/10/17 12:21 Bedside Glucose 106 110 174 Medications Medications Current Medications Amlodipine Besylate (Norvasc) 5 mg DAILY PO Last administered on 06/09/17 08: 20; Admin Dose 5 MG; Start 06/08/17 at 16:30 Sodium Bicarbonate (Sodium Bicarbonate Tab) 650 mg BID PO Last administered on 06/09/17 21:00; Admin Dose 650 MG; Start 06/08/17 at 21:00 Carvedilol (Coreg) 3.125 mg BID PO Last administered on 06/09/17 21:00; Admin Dose 3.125 MG; Start 06/08/17 at 21:00 Aspirin (Aspirin) 81 mg DAILY PO ; Start 06/09/17 at 09:00 Escitalopram Oxalate (Lexapro) 5 mg DAILY PO Last administered on 06/09/17 08: 20; Admin Dose 5 MG; Start 06/09/17 at 09:00 Heparin Sodium (Porcine) (Heparin (5000 Units/0.5 ml)) 5,000 unit Q12 SC Last administered on 06/09/17 21:00; Admin Dose 5,000 UNIT; Start 06/08/17 at 21:00 Diagnostic Test (Pha) (Accu-Chek) 1 ea 02 XX ; Start 06/09/17 at 02:00 Insulin Glargine (Lantus) 8 unit DAILY@08 SC Last administered on 06/09/17 08: 16; Admin Dose 8 UNIT; Start 06/09/17 at 08:00 Miscellaneous Information 1 ea NOTE XX ; Start 06/08/17 at 17:00 Glucose (Glutose) 15 gm Q15M PRN PO DECREASED GLUCOSE; Start 06/08/17 at 17:00 Glucose (Glutose) 22.5 gm Q15M PRN PO DECREASED GLUCOSE; Start 06/08/17 at 17: 00 Dextrose (D50w Syringe) 25 ml Q15M PRN IV DECREASED GLUCOSE; Start 06/08/17 at 17:00 Dextrose (D50w Syringe) 50 ml Q15M PRN IV DECREASED GLUCOSE; Start 06/08/17 at 17:00 Glucagon (Glucagen) 1 mg Q15M PRN IM DECREASED GLUCOSE; Start 06/08/17 at 17:00 Glucose 15 gm 15 gm Q15M PRN BUCCAL DECREASED GLUCOSE; Start 06/08/17 at 17:00 Vancomycin HCl (Vancocin) 250 ml @ 125 mls/hr ONCE ONCE IVPB Last administered on 06/10/17 12:32; Admin Dose 125 MLS/HR; Start 06/10/17 at 12:30 ; Stop 06/10/17 at 14:29 ALBA ALEXANDRA MD Jun 10, 2017 14:17
--- NOTE | 2017-06-10 17:01 | DS ---
Date/Time of Note Date/Time of Note DATE: 06/10/17 TIME: 16:57 Discharge Summary Admission/Discharge Info Admit Date/Time Jun 08, 2017 at 11:45 Discharge Date/Time June 10, 2017 Discharge Diagnosis 1. End-stage renal disease with clotted AV fistula Status post declotting with vascular surgery Hemodialysis completed 2. Hypertension Continue home meds 3. Diabetes Continue home regimen 4. Debility due to dementia/cognitive impairment DC back to [facility] Patient Condition: Fair Hospital Course Patient is 87 yo female with ESRD, DMII, cognitive impairment, [place] resident who was sent from HD center as her fistula was found to be clotted. Patient was seen by Dr Lozano who declotted fistula and patient was dialyzed in house. Patient was clear for DC per vascular surgery and on day of discharge patient's vitals labs physical exam are stable, she no acute complaints. Home Meds No Active Prescriptions or Reported Meds Follow-up Plan F/U WITH YOUR PCP IN 1-[address] TAMEKA MEREDITH OF VASCULAR SURGERY IN 1-2 WEEKS Primary Care Provider Tee Cespedes Time spent on discharge: > 30 minutes AINSLEY HAYNES Jun 10, 2017 17:01
--- NOTE | 2017-06-10 17:01 | DS ---
Date/Time of Note Date/Time of Note DATE: 06/10/17 TIME: 16:57 Discharge Summary Admission/Discharge Info Admit Date/Time Jun 08, 2017 at 11:45 Discharge Date/Time June 10, 2017 Discharge Diagnosis 1. End-stage renal disease with clotted AV fistula Status post declotting with vascular surgery Hemodialysis completed 2. Hypertension Continue home meds 3. Diabetes Continue home regimen 4. Debility due to dementia/cognitive impairment DC back to shelter Patient Condition: Fair Hospital Course Patient is 87 yo female with ESRD, DMII, cognitive impairment, [place] resident who was sent from HD center as her fistula was found to be clotted. Patient was seen by Dr Lozano who declotted fistula and patient was dialyzed in house. Patient was clear for DC per vascular surgery and on day of discharge patient's vitals labs physical exam are stable, she no acute complaints. Home Meds No Active Prescriptions or Reported Meds Follow-up Plan F/U WITH YOUR PCP IN 1-[address] TAMEKA MEREDITH OF VASCULAR SURGERY IN 1-2 WEEKS Primary Care Provider Tee Cespedes Time spent on discharge: > 30 minutes AINSLEY HAYNES Jun 10, 2017 17:01
--- NOTE | 2017-06-10 17:01 | DS ---
Date/Time of Note Date/Time of Note DATE: 06/10/17 TIME: 16:57 Discharge Summary Admission/Discharge Info Admit Date/Time Jun 08, 2017 at 11:45 Discharge Date/Time June 10, 2017 Discharge Diagnosis 1. End-stage renal disease with clotted AV fistula Status post declotting with vascular surgery Hemodialysis completed 2. Hypertension Continue home meds 3. Diabetes Continue home regimen 4. Debility due to dementia/cognitive impairment DC back to [facility] Patient Condition: Fair Hospital Course Patient is 87 yo female with ESRD, DMII, cognitive impairment, [place] resident who was sent from HD center as her fistula was found to be clotted. Patient was seen by Dr Lozano who declotted fistula and patient was dialyzed in house. Patient was clear for DC per vascular surgery and on day of discharge patient's vitals labs physical exam are stable, she no acute complaints. Home Meds No Active Prescriptions or Reported Meds Follow-up Plan F/U WITH YOUR PCP IN 1-[address] TAMEKA MEREDITH OF VASCULAR SURGERY IN 1-2 WEEKS Primary Care Provider Tee Cespedes Time spent on discharge: > 30 minutes AINSLEY HAYNES Jun 10, 2017 17:01
--- NOTE | 2017-06-11 15:41 | RADRPT ---
Vent Rate: 77 bpm RR Interval: 0 msec [place] Interval: 192 msec QRS Duration: 142 msec QT Interval: 438 msec QTC Interval: 495 msec P-R-T [place]: 63 - 16 - 0 degrees Normal sinus rhythm Left bundle branch block Abnormal ECG Electronically Signed By: John Paul Galloway [id number]
--- NOTE | 2017-06-11 15:41 | RADRPT ---
Vent Rate: 77 bpm RR Interval: 0 msec [place] Interval: 192 msec QRS Duration: 142 msec QT Interval: 438 msec QTC Interval: 495 msec P-R-T [place]: 63 - 16 - 0 degrees Normal sinus rhythm Left bundle branch block Abnormal ECG Electronically Signed By: John Paul Galloway [id number]
--- NOTE | 2017-06-11 15:41 | RADRPT ---
Vent Rate: 91 bpm RR Interval: 0 msec [place] Interval: 198 msec QRS Duration: 142 msec QT Interval: 408 msec QTC Interval: 501 msec P-R-T [place]: 71 - 14 - 0 degrees Normal sinus rhythm Left bundle branch block Abnormal ECG Electronically Signed By: John Paul Galloway [id number]
--- NOTE | 2017-06-11 15:41 | RADRPT ---
Vent Rate: 91 bpm RR Interval: 0 msec [place] Interval: 198 msec QRS Duration: 142 msec QT Interval: 408 msec QTC Interval: 501 msec P-R-T [place]: 71 - 14 - 0 degrees Normal sinus rhythm Left bundle branch block Abnormal ECG Electronically Signed By: John Paul Galloway [id number]
--- NOTE | 2017-06-11 15:41 | RADRPT ---
Vent Rate: 91 bpm RR Interval: 0 msec [place] Interval: 198 msec QRS Duration: 142 msec QT Interval: 408 msec QTC Interval: 501 msec P-R-T [place]: 71 - 14 - 0 degrees Normal sinus rhythm Left bundle branch block Abnormal ECG Electronically Signed By: John Paul Galloway [id number]
--- NOTE | 2017-06-11 15:41 | RADRPT ---
Vent Rate: 77 bpm RR Interval: 0 msec [place] Interval: 192 msec QRS Duration: 142 msec QT Interval: 438 msec QTC Interval: 495 msec P-R-T [place]: 63 - 16 - 0 degrees Normal sinus rhythm Left bundle branch block Abnormal ECG Electronically Signed By: John Paul Galloway [id number]
--- NOTE | 2017-06-12 21:25 | RADRPT ---
Echocardiogram Report Patient Name: BROCK HOOD Gender: Female Date: 1930 Study Date: 09-Jun-2017 Separator Tender: Lorrie Christopher [facility] Location: [facility] Ref. Physician: DEVON COOLEY Quality: Technically Difficult Study Procedures: Transthoracic echocardiogram with complete 2D, M-Mode, and doppler examination. Indications: Pre-op. 2D/M Mode Doppler Measurement Value Normal Ranges Measurement Value Normal Ranges LVIDd 2D 4.4 3.5 - 5.6 cm DYLAN Vmax 1.3 cm2 LVIDs 2D 2.7 2.1 - 4.1 cm DYLAN VTI 1.3 cm2 LVPWd 2D 1.1 0.6 - 1.1 cm AV Mean Maurice 1.8 m/sec IVSd 2D 1.5 0.6 - 1.1 cm AV Mean PG 15.0 mmHg AoR Diam 2D 2.7 2.0 - 3.7 cm AV Peak Maurice 2.7 m/sec EDV 2D 89.0 cm3 AV Peak PG 28.5 mmHg ESV 2D 19.0 cm3 AV VTI 51.4 cm LA Dimen 2D 3.0 2.3 - 4.0 cm LVOT Mean Maurice 0.8 m/sec LVOT Diam 1.9 cm LVOT Mean PG 3.2 mmHg LVOT Peak Maurice 1.2 m/sec LVOT Peak PG 5.8 mmHg LVOT VTI 25.3 cm MV E Peak Maurice 0.7 m/sec MV A Peak Maurice 0.9 m/sec MV E/A 0.9 MV Decel Time 121 msec MV Decel [place] 6 MV E/A 0.9 TR Peak Maurice 2.7 m/sec TR Peak PG 28.7 mmHg RVSP 32.0 mmHg Findings Left Ventricle: Lower limits of normal systolic function. Normal left ventricular cavity size. Moderate asymmetric septal hypertrophy. Ejection fraction is visually estimated at 5055 %. Tissue Doppler/Mitral Doppler indices are consistent with impaired relaxation (Stage I diastolic dysfunction). Right Ventricle: Normal right ventricular size. Normal right ventricular systolic function. Left Atrium: The left atrium is normal in size. Right Atrium: The right atrium is normal in size. Mitral Valve: Mitral valve leaflets appear mildly thickened. Mild mitral annular calcification. Mild mitral valve regurgitation. Aortic Valve: Mild aortic stenosis. Aortic valve Max velocity 2.67 m/sec. Max PG 28.50 mmHg. Mean PG 15.00 mmHg. Aortic valve area 1.40 cm2. Aortic cusps appear mildly calcified. Mild aortic valve regurgitation. Tricuspid Valve: Normal appearance of the tricuspid valve. Estimated peak PA systolic pressure 32 mmHg. There is mild tricuspid regurgitation. Pulmonic Valve: Normal pulmonic valve appearance. There is trace pulmonic regurgitation. Pericardium: Normal pericardium with no significant pericardial effusion. Aorta: Normal aortic root. IVC: Normal size and normal respiratory collapse consistent with normal right atrial pressure. Conclusions 1.Lower limits of normal systolic function. Normal left ventricular cavity size. Moderate asymmetric septal hypertrophy. Ejection fraction is visually estimated at 50-55 %. Tissue Doppler/Mitral Doppler indices are consistent with impaired relaxation (Stage I diastolic dysfunction). 2.Mild mitral valve regurgitation. 3.Mild aortic stenosis. Mean PG 15.00 mmHg. Aortic valve area 1.40 cm2. Aortic cusps appear mildly calcified. Mild aortic valve regurgitation. 4.Normal appearance of the tricuspid valve. Estimated peak PA systolic pressure 32 mmHg. There is mild tricuspid regurgitation. 5.Normal pulmonic valve appearance. There is trace pulmonic regurgitation. Electronically Signed By: Devon Cooley 12-Jun-2017 21:24:21 -0800 Patient Name: BROCK HOOD Study Date: 09-Jun-2017 [id number]
--- NOTE | 2017-06-12 21:25 | RADRPT ---
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 Physician: DEVON COOLEY Quality: Technically Difficult Study Procedures: Transthoracic echocardiogram with complete 2D, M-Mode, and doppler examination. Indications: Pre-op. 2D/M Mode Doppler Measurement Value Normal Ranges Measurement Value Normal Ranges LVIDd 2D 4.4 3.5 - 5.6 cm DYLAN Vmax 1.3 cm2 LVIDs 2D 2.7 2.1 - 4.1 cm DYLAN VTI 1.3 cm2 LVPWd 2D 1.1 0.6 - 1.1 cm AV Mean Maurice 1.8 m/sec IVSd 2D 1.5 0.6 - 1.1 cm AV Mean PG 15.0 mmHg AoR Diam 2D 2.7 2.0 - 3.7 cm AV Peak Maurice 2.7 m/sec EDV 2D 89.0 cm3 AV Peak PG 28.5 mmHg ESV 2D 19.0 cm3 AV VTI 51.4 cm LA Dimen 2D 3.0 2.3 - 4.0 cm LVOT Mean [place] 0.8 m/sec LVOT Diam 1.9 cm LVOT Mean PG 3.2 mmHg LVOT Peak Maurice 1.2 m/sec LVOT Peak PG 5.8 mmHg LVOT VTI 25.3 cm MV E Peak Maurice 0.7 m/sec MV A Peak [place] 0.9 m/sec MV E/A 0.9 MV Decel Time 121 msec MV Decel [place] 6 MV E/A 0.9 TR Peak Maurice 2.7 m/sec TR Peak PG 28.7 mmHg RVSP 32.0 mmHg Findings Left Ventricle: Lower limits of normal systolic function. Normal left ventricular cavity size. Moderate asymmetric septal hypertrophy. Ejection fraction is visually estimated at 5055 %. Tissue Doppler/Mitral Doppler indices are consistent with impaired relaxation (Stage I diastolic dysfunction). Right Ventricle: Normal right ventricular size. Normal right ventricular systolic function. Left Atrium: The left atrium is normal in size. Right Atrium: The right atrium is normal in size. Mitral Valve: Mitral valve leaflets appear mildly thickened. Mild mitral annular calcification. Mild mitral valve regurgitation. Aortic Valve: Mild aortic stenosis. Aortic valve Max velocity 2.67 m/sec. Max PG 28.50 mmHg. Mean PG 15.00 mmHg. Aortic valve area 1.40 cm2. Aortic cusps appear mildly calcified. Mild aortic valve regurgitation. Tricuspid Valve: Normal appearance of the tricuspid valve. Estimated peak PA systolic pressure 32 mmHg. There is mild tricuspid regurgitation. Pulmonic Valve: Normal pulmonic valve appearance. There is trace pulmonic regurgitation. Pericardium: Normal pericardium with no significant pericardial effusion. Aorta: Normal aortic root. IVC: Normal size and normal respiratory collapse consistent with normal right atrial pressure. Conclusions 1.Lower limits of normal systolic function. Normal left ventricular cavity size. Moderate asymmetric septal hypertrophy. Ejection fraction is visually estimated at 50-55 %. Tissue Doppler/Mitral Doppler indices are consistent with impaired relaxation (Stage I diastolic dysfunction). 2.Mild mitral valve regurgitation. 3.Mild aortic stenosis. Mean PG 15.00 mmHg. Aortic valve area 1.40 cm2. Aortic cusps appear mildly calcified. Mild aortic valve regurgitation. 4.Normal appearance of the tricuspid valve. Estimated peak PA systolic pressure 32 mmHg. There is mild tricuspid regurgitation. 5.Normal pulmonic valve appearance. There is trace pulmonic regurgitation. Electronically Signed By: Devon Cooley 12-Jun-2017 21:24:21 -0800 Patient Name: BROCK HOOD Study Date: 09-Jun-2017 [id number]
--- NOTE | 2017-06-12 21:25 | RADRPT ---
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 Physician: DEVON COOLEY Quality: Technically Difficult Study Procedures: Transthoracic echocardiogram with complete 2D, M-Mode, and doppler examination. Indications: Pre-op. 2D/M Mode Doppler Measurement Value Normal Ranges Measurement Value Normal Ranges LVIDd 2D 4.4 3.5 - 5.6 cm DYLAN Vmax 1.3 cm2 LVIDs 2D 2.7 2.1 - 4.1 cm DYLAN VTI 1.3 cm2 LVPWd 2D 1.1 0.6 - 1.1 cm AV Mean Maurice 1.8 m/sec IVSd 2D 1.5 0.6 - 1.1 cm AV Mean PG 15.0 mmHg AoR Diam 2D 2.7 2.0 - 3.7 cm AV Peak Maurice 2.7 m/sec EDV 2D 89.0 cm3 AV Peak PG 28.5 mmHg ESV 2D 19.0 cm3 AV VTI 51.4 cm LA Dimen 2D 3.0 2.3 - 4.0 cm LVOT Mean Maurice 0.8 m/sec LVOT Diam 1.9 cm LVOT Mean PG 3.2 mmHg LVOT Peak Maurice 1.2 m/sec LVOT Peak PG 5.8 mmHg LVOT VTI 25.3 cm MV E Peak Maurice 0.7 m/sec MV A Peak Maurice 0.9 m/sec MV E/A 0.9 MV Decel Time 121 msec MV Decel Davie 6 MV E/A 0.9 TR Peak Maurice 2.7 m/sec TR Peak PG 28.7 mmHg RVSP 32.0 mmHg Findings Left Ventricle: Lower limits of normal systolic function. Normal left ventricular cavity size. Moderate asymmetric septal hypertrophy. Ejection fraction is visually estimated at 5055 %. Tissue Doppler/Mitral Doppler indices are consistent with impaired relaxation (Stage I diastolic dysfunction). Right Ventricle: Normal right ventricular size. Normal right ventricular systolic function. Left Atrium: The left atrium is normal in size. Right Atrium: The right atrium is normal in size. Mitral Valve: Mitral valve leaflets appear mildly thickened. Mild mitral annular calcification. Mild mitral valve regurgitation. Aortic Valve: Mild aortic stenosis. Aortic valve Max velocity 2.67 m/sec. Max PG 28.50 mmHg. Mean PG 15.00 mmHg. Aortic valve area 1.40 cm2. Aortic cusps appear mildly calcified. Mild aortic valve regurgitation. Tricuspid Valve: Normal appearance of the tricuspid valve. Estimated peak PA systolic pressure 32 mmHg. There is mild tricuspid regurgitation. Pulmonic Valve: Normal pulmonic valve appearance. There is trace pulmonic regurgitation. Pericardium: Normal pericardium with no significant pericardial effusion. Aorta: Normal aortic root. IVC: Normal size and normal respiratory collapse consistent with normal right atrial pressure. Conclusions 1.Lower limits of normal systolic function. Normal left ventricular cavity size. Moderate asymmetric septal hypertrophy. Ejection fraction is visually estimated at 50-55 %. Tissue Doppler/Mitral Doppler indices are consistent with impaired relaxation (Stage I diastolic dysfunction). 2.Mild mitral valve regurgitation. 3.Mild aortic stenosis. Mean PG 15.00 mmHg. Aortic valve area 1.40 cm2. Aortic cusps appear mildly calcified. Mild aortic valve regurgitation. 4.Normal appearance of the tricuspid valve. Estimated peak PA systolic pressure 32 mmHg. There is mild tricuspid regurgitation. 5.Normal pulmonic valve appearance. There is trace pulmonic regurgitation. Electronically Signed By: Devon Cooley 12-Jun-2017 21:24:21 -0800 Patient Name: BROCK HOOD Study Date: 09-Jun-2017 [id number]
== END 2017-06-10 17:20 | DRG 252 ==
LOC: E/R 09:06 → MS2 11:45
PROVIDERS: ADMIT Internal Medicine; ATTEND Internal Medicine
PROC: 05C83ZZ Extirpation of Matter from Left Axillary Vein, Percutaneous Approach (ICD-10-PCS; 2017-06-10)
PROC: 5A1D70Z Performance of Urinary Filtration, Intermittent, Less than 6 Hours Per Day (ICD-10-PCS; 2017-06-10)
PROC: B51WYZZ Fluoroscopy of Dialysis Shunt/Fistula using Other Contrast (ICD-10-PCS; 2017-06-10)
PROC: 03C83ZZ Extirpation of Matter from Left Brachial Artery, Percutaneous Approach (ICD-10-PCS; principal; 2017-06-10 07:30)
DX: T82.868A Thrombosis due to vascular prosthetic devices, implants and grafts, initial encounter (principal); N18.6 End stage renal disease; I13.2 Hypertensive heart and chronic kidney disease with heart failure and with stage 5 chronic kidney disease, or end stage renal disease; F03.90 Unspecified dementia, unspecified severity, without behavioral disturbance, psychotic disturbance, mood disturbance, and anxiety; E11.22 Type 2 diabetes mellitus with diabetic chronic kidney disease; Z99.2 Dependence on renal dialysis; Z91.15 Patient's noncompliance with renal dialysis; G31.84 Mild cognitive impairment of uncertain or unknown etiology; Y71.8 Miscellaneous cardiovascular devices associated with adverse incidents, not elsewhere classified; F17.210 Nicotine dependence, cigarettes, uncomplicated; I25.10 Atherosclerotic heart disease of native coronary artery without angina pectoris; Z95.1 Presence of aortocoronary bypass graft; E78.5 Hyperlipidemia, unspecified; I50.9 Heart failure, unspecified
CPT/HCPCS: 73060; 78452; 80048; 80053; 80061; 80202; 82550; 82553; 82962; 84484; 85025; 85610; 85730; 86850; 86900; 86901; 86920; 87081; 88304; 90935; 93005; 93017; 93306; 93931; A9500; A9505; J1644; J1815; J2250; J2710; J3010; J3370; J7050; Q9967